=== PATIENT | female | born 1995 | race African-American/Black ===

== ENCOUNTER 2021-06-27 15:07 | Inpatient (IN) ==
[2021-06-27] MEDS ORDERED: Buffered Lidocaine 1% SYRIN 1 ml INTRADERM ONE (17:48)
[2021-06-27] MEDS ORDERED: Promethazine INJ(RESTRICTED) 25 MG/ML 1 ml VIAL IV ONE (17:48)
[2021-06-27] MEDS ORDERED: Nalbuphine 10 MG/ML 1 ML VIAL IV PRN (17:51)
[2021-06-27] MEDS ORDERED: Lactated Ringers 1000 ml BAG 1,000 ML IV ONE ×2 (18:05→22:39)
[2021-06-27 19:19] LABS: Hematocrit 35 % (35-47); Hemoglobin 11.3 g/dL (12.0-16.0); Mean Corpuscular HGB Conc 33 g/dL (31-36); Mean Corpuscular Hemoglobin 27 pg (27-31); Mean Corpuscular Volume 83 fL (80-97); Mean Platelet Volume 10.3 fL (7.4-10.4); Platelet Count 215 10^3/uL (150-450); Red Blood Count 4.21 10^6 /uL (3.70-4.87); Red Cell Distribution Width 22 % (10-15); White Blood Count 4.4 10^3/uL (3.5-10.8)
[2021-06-27 19:50] LABS: ABS Lymphocytes 1.5 10^3/ul (1.0-4.8); ABS Monocytes 0.6 10^3/ul (0-0.8); ABS Neutrophils 2.3 10^3/ul (1.5-7.7); Eosinophil % 0.3 %; Lymphocyte % 32.7 %; Nucleated Red Blood Cells % 0.2
[2021-06-27] MEDS ORDERED: OBEPIDURAL 250 ML EPIDURAL ONE (22:43)
[2021-06-28 00:02] LABS: Urine Appearance Clear; Urine Bilirubin Negative (Negative); Urine Blood 1+ (Negative); Urine Color Yellow; Urine Glucose Negative (Negative); Urine Ketones Negative (Negative); Urine Nitrite Negative (Negative); Urine Protein Negative (Negative); Urine Specific Gravity 1.006 (1.002-1.030); Urine Urobilinogen Negative (Negative)
[2021-06-28] MEDS ORDERED: Sodium Citrate/Citric Acid LIQ 15 ML UDC PO PRN (00:02)
[2021-06-28] MEDS ORDERED: Lactated Ringers 1000 ml BAG 500 ML IV PRN ×2 (00:02)
[2021-06-28] MEDS ORDERED: Lactated Ringers 1000 ml BAG 1,000 ML IV ONE (00:02)
[2021-06-28] MEDS ORDERED: Phenylephrine 40 mcg/mL 10mL (400mcg) SYRINGE IV PUSH PRN ×2 (00:02)
[2021-06-28 00:04] LABS: Urine Bacteria Absent (Absent); Urine Red Blood Cell 2+(6-10/hpf) (Absent); Urine Squamous Epithelial Cell Present (Absent); Urine White Blood Cell Trace(0-5/hpf) (Absent)
[2021-06-28 00:25] LABS: Albumin 3.4 g/dL (3.2-5.2); Calcium 9.3 mg/dL (8.6-10.3); Potassium 4.4 mmol/L (3.5-5.0); Total Bilirubin 0.4 mg/dL (0.2-1.0)
[2021-06-28 00:31] LABS: Albumin/Globulin Ratio 0.9 (1-3); Globulin 3.6 g/dL (2-4)
[2021-06-28 00:54] LABS: Urine Benzodiazepine Screen None Detected (None Detect); Urine Cannabinoids Screen None Detected (None Detect); Urine Opiates Screen None Detected (None Detect)
[2021-06-28] MEDS ORDERED: Lactated Ringers 1000 ml BAG 1,000 ML IV SCH ×3 (01:00→10:00)
[2021-06-28] MEDS ORDERED: Oxytocin in LR 20 UNITS/1,000 ML BAG IVPB ONE (02:09)
[2021-06-28] MEDS ORDERED: Lidocaine 2% w/ EPI 1:200,000 MPF 20 ML SDV VIAL ONE (05:07)
[2021-06-28] MEDS: Ampicillin ADVAN 2 GM in NS 0.9% 100 ml BAG 100 ML IVPB SCH ×3 (05:40→18:49)
[2021-06-28] MEDS ORDERED: Oxytocin in LR 20 UNITS/1,000 ML BAG IVPB SCH ×3 (06:00→10:59)
[2021-06-28] MEDS: Gentamicin ADULT 340 MG in NS 0.9% 100 ml BAG 100 ML IVPB SCH (06:06)
[2021-06-28] MEDS ORDERED: Lidocaine 2% PF 10 ML AMP ONE (07:54)
[2021-06-28 08:00] LABS: ABS Basophils 0.1 10^3/ul (0-0.2); ABS Lymphocytes 1.7 10^3/ul (1.0-4.8); ABS Monocytes 1.1 10^3/ul (0-0.8); ABS Neutrophils 6.1 10^3/ul (1.5-7.7); Hematocrit 35 % (35-47); Hemoglobin 11.4 g/dL (12.0-16.0); Lymphocyte % 18.6 %; Mean Corpuscular HGB Conc 33 g/dL (31-36); Mean Corpuscular Hemoglobin 27 pg (27-31); Mean Corpuscular Volume 83 fL (80-97); Mean Platelet Volume 9.9 fL (7.4-10.4); Platelet Count 229 10^3/uL (150-450); Red Blood Count 4.21 10^6 /uL (3.70-4.87); Red Cell Distribution Width 22 % (10-15)
[2021-06-28] MEDS ORDERED: Labetalol IV 5 MG/ML 20 ml VIAL ONE (08:08)
[2021-06-28] MEDS ORDERED: Labetalol IV 5 MG/ML 20 ml VIAL IV PUSH ONE (08:10)
[2021-06-28 08:16] LABS: Albumin 3.4 g/dL (3.2-5.2); Albumin/Globulin Ratio 0.9 (1-3); Globulin 3.8 g/dL (2-4); Potassium 3.8 mmol/L (3.5-5.0); Total Bilirubin 0.5 mg/dL (0.2-1.0); Total Protein 7.2 g/dL (6.4-8.9); Uric Acid 5.8 mg/dL (2.3-6.6)
[2021-06-28] MEDS ORDERED: Lidocaine 1% VIAL 10 MG/ML VIAL ONE (09:46)
[2021-06-28] MEDS ORDERED: Phenylephrine 40 mcg/mL 10mL (400mcg) SYRINGE ONE (11:07)
[2021-06-28] MEDS: Witch Hazel PAD JAR TOPICAL PRN (13:29)
[2021-06-28] MEDS: Dibucaine 1% OINT 28.35 GM TUBE PR PRN (13:29)
[2021-06-29] MEDS ORDERED: NS 0.9% 100 ml BAG 100 ML ONE (00:27)
[2021-06-29] MEDS: Ampicillin ADVAN 2 GM in NS 0.9% 100 ml BAG 100 ML IVPB SCH ×2 (00:48→06:17)
[2021-06-29] MEDS: Gentamicin ADULT 340 MG in NS 0.9% 100 ml BAG 100 ML IVPB SCH (05:53)
[2021-06-29 07:47] LABS: ABS Basophils 0.1 10^3/ul (0-0.2); ABS Lymphocytes 2.2 10^3/ul (1.0-4.8); ABS Monocytes 0.7 10^3/ul (0-0.8); ABS Neutrophils 4.7 10^3/ul (1.5-7.7); Eosinophil % 0.4 %; Hematocrit 29 % (35-47); Hemoglobin 9.3 g/dL (12.0-16.0); Lymphocyte % 28.7 %; Mean Corpuscular HGB Conc 32 g/dL (31-36); Mean Corpuscular Hemoglobin 27 pg (27-31); Mean Corpuscular Volume 84 fL (80-97); Mean Platelet Volume 9.8 fL (7.4-10.4); Platelet Count 177 10^3/uL (150-450); Red Blood Count 3.44 10^6 /uL (3.70-4.87); Red Cell Distribution Width 22 % (10-15); White Blood Count 7.7 10^3/uL (3.5-10.8)
[2021-06-29] MEDS: OBEPIDURAL 250 ML EPIDURAL SCH ×2 (20:55→20:56)
[2021-06-30 08:55] VITALS: BP 118/66
[2021-06-30] MEDS ORDERED: Flu vaccine *QUAD* 2021-22* 0.5 ML SYRINGE IM ONE (09:00)
[2021-06-30] MEDS: Witch Hazel PAD JAR TOPICAL PRN (16:20)
[2021-06-30] MEDS: Dibucaine 1% OINT 28.35 GM TUBE PR PRN (16:20)
== END 2021-06-30 16:34 | disposition home or self-care (01) | DRG 560 ==
LOC: MCHOBOUT 15:07 → MCHOB 22:55
PROVIDERS: ADMIT Advanced Practice Midwife; ATTEND Advanced Practice Midwife